=== PATIENT | female | born 1980 | race Caucasian/White ===

== ENCOUNTER 2017-02-05 22:44 | Emergency (ER) | payer OTHER ==
[~2017-02-05] VITALS: Ht 175.3 cm; Wt 153.8 kg
[~2017-02-05 22:44] MED LIST: ADDERALL XR 1515 MG PO; AMOXICILLIN500 MG PO; BACTRIM,SEPT1 TABLET PO; INDOCIN25 MG PO; MOTRIN800 MG PO; PERCOCET 5/31 TABLET PO; PROZAC40 MG PO; Percocet 5/325,Endoc PO; SYNTHROID200 MCG PO; TYLENOL REGULA325 MG PO; ULTRACET1 TABLET PO; ULTRAM50 MG PO; VALIUM5 MG PO; WELLBUTRIN XL150 MG PO; WELLBUTRIN100 MG PO
[2017-02-05 23:00] VITALS: BP 133/94
== END 2017-02-06 01:13 | disposition home or self-care (01) ==
LOC: EME 22:44
DX: G89.18 Other acute postprocedural pain (principal); F17.200 Nicotine dependence, unspecified, uncomplicated
CPT/HCPCS: 73630; 99281; 99283

== ENCOUNTER 2017-05-27 18:18 | Emergency (ER) | payer OTHER ==
[~2017-05-27] VITALS: Ht 175.3 cm; Wt 144.0 kg
[2017-05-27 19:24] LABS: HEMATOCRIT 36.5 % (36.0-46.0); HEMOGLOBIN 12.5 G/DL (11.9-15.5); MCH 27.9 PG (29.0-34.0); MCHC 34.2 G/DL (30.0-36.0); MCV 81.5 FL (83-99); PLATELET COUNT 181 K/uL (156-360); RBC DIS.WIDTH-CV 13.1 % (11.8-14.6); RBC DIS.WIDTH-SD 38.8 % (39-53); RED BLOOD COUNT 4.48 M/uL (3.80-5.20)
[2017-05-27 19:37] LABS: APPEARANCE SL.HAZY ((CLEAR)); BILIRUBIN NEGATIVE; BLOOD NEGATIVE; COLOR AMBER ((YELLOW)); GLUCOSE (STRIP) NEGATIVE; KETONES NEGATIVE; LEUKOCYTES NEGATIVE; NITRITE NEGATIVE; PROTEIN (STRIP) 30; SPECIFIC GRAVITY 1.025 (1.000-1.030)
[2017-05-27 19:45] LABS: BACTERIA RARE /HPF; EPITHELIAL CELLS 1+ /HPF; HYALINE CASTS 15-20 /LPF; MUCUS TRACE /LPF; UCUL ADDED? NO; WHITE BLOOD CELLS 0-5 /HPF (0-5)
[2017-05-27 19:59] LABS: ALBUMIN 3.3 g/dL (3.2-4.8); CHLORIDE 102 mEq/L (99-109); POTASSIUM 3.8 mEq/L (3.7-5.4); SODIUM 134 mEq/L (136-147)
[2017-05-27 20:01] LABS: GLUCOSE 116 mg/dL (70-99); TOTAL PROTEIN 6.4 g/dL (6.4-8.3)
[2017-05-27 20:05] LABS: ALKALINE PHOSPHATASE 65 IU/L (3-129); CREATININE 1.2 mg/dL (0.6-1.3); GFR ESTIMATE (CALCULATED) 54 mL/min/
[2017-05-27 20:06] LABS: AST (GOT) 42 IU/L (2-34); UREA NITROGEN (BUN) 10 mg/dL (9-23)
[2017-05-27 20:07] LABS: DIRECT BILIRUBIN 0.5 mg/dL (0.0-0.3)
[2017-05-27 20:08] LABS: ALT (GPT) 51 IU/L (3-49); LIPASE 8 U/L (1.0-51.0)
[2017-05-27 20:17] LABS: QUANTITATIVE HCG < 4.0 MIU/ML
[2017-05-27 21:31] LABS: MONOSPOT (MONONUCLEOSIS SEROL) NEGATIVE
[2017-05-27] MEDS ORDERED: ZOFRAN ODT8 MG PO (22:30)
[2017-05-27 23:18] VITALS: BP 108/46
== END 2017-05-27 23:19 | disposition home or self-care (01) ==
LOC: EME 18:18
PROVIDERS: Physician Assistant
DX: R11.2 Nausea with vomiting, unspecified (principal); E86.0 Dehydration; B19.20 Unspecified viral hepatitis C without hepatic coma; F32.9 Major depressive disorder, single episode, unspecified; F41.9 Anxiety disorder, unspecified; F17.200 Nicotine dependence, unspecified, uncomplicated; F90.9 Attention-deficit hyperactivity disorder, unspecified type; Z90.49 Acquired absence of other specified parts of digestive tract
CPT/HCPCS: 80048; 80076; 81003; 83690; 84702; 85027; 86308; 86664; 86665; 99281; 99285; J2405; J7030